=== PATIENT | female | born 1950 | race Caucasian/White ===

== ENCOUNTER 2016-12-01 05:41 | Outpatient (CLI) | payer BC ==
[~2016-12-01] VITALS: Ht 167.6 cm; Wt 59.1 kg
--- NOTE | ~2016-12-01 | HEMODYNAMI ---
PATIENT:MONTY BARNETT MEDICAL RECORD: [id number] : 54 [id number] ADMISSION DATE: 12/01/16 Generatedon:12/01/20169:54 Patient name: MONTY BARNETT Patient #: [id number] SSN: : 1950 Date of study: 12/01/2016 Page: Of Hemodynamic Procedure Report Patient Data Patient Demographics Procedure consent was obtained First Name: MONTY Gender: Female Last Name: ANIBAL : 1950 [facility] Initial: JACQUES Age: 66 year(s) Patient #: [id number] Race: Unknown Additional ID: [id number] Contact details Address: [address] [place] [address] State: [place] City: [facility] Zip code: [address] Admission Admission Data Admission Date: 12/01/2016 Admission Time: 5:41 Procedure Procedure Types Cath Procedure Peripheral Cath Diagnostic Procedure Miscellaneous Procedure Description Procedure Date Procedure Date: 12/01/2016 Procedure Start Time: 8:30 Procedure Staff Name Function Jai Sousa MD Performing Physician Kathy Bowen RT Scrub Pawel Mensah RT Monitor Lauren Huitron RN Nurse Procedure Data Cath Procedure Fluoroscopy Diagnostic fluoroscopy Total fluoroscopy Time: 7.9 time: 7.9 min min Diagnostic fluoroscopy Total fluoroscopy dose: 418 dose: 418 mGy mGy Contrast Material Contrast Material Type Amount (ml) Isovue 300 138 Entry Location Entry Primary Successful Side Size Upsize 1 Upsize Entry Closure Garces ccessful Closure Location (Fr) (Fr) 2 (Fr) Remarks Device Remarks Femoral Left 5 Fr Exoseal artery Femoral Right 5 Fr 6 Fr Exoseal artery Mid-Length Diagnostic catheters Device Type Used For End Catheter Placement Merit ULTRA BOLUS FLUSH 5Fr 65CM catheter Procedure Medications Medication Administration Route Dosage Fentanyl I.V. 50 mcg Versed 1 mg Fentanyl I.V. 50 mcg Versed 1 mg Benadryl I.V. 50 mg Nitroglycerin IC/IA I.A. 200 mcg Heparin Bolus I.V. 5000 units Fentanyl I.V. 50 mcg Versed I.V. 1 mg Fentanyl I.V. 50 mcg Versed I.V. 1 mg Hemodynamics Rest Heart Rate: 75 (bpm) Snapshots Pre Cath Intra NCS Post Cath Vital Signs Time Heart Resp SPO2 NIBP (mmHg) Rhythm Pain Status Sedation Rate (ipm) (%) Level (bpm) 8:20:43 77 15 98 136/69(101) NSR 0 (11) , No 10(A) pain 8:24:51 74 16 100 145/78(112) NSR 0 (11) , No 10(A) pain 8:29:00 75 12 100 127/76(106) NSR 0 (11) , No 10(A) pain 8:33:02 79 21 100 141/82(116) NSR 0 (11) , No 10(A) pain 8:37:12 77 17 100 143/75(112) NSR 5 (11) , 10(A) Very distressing 8:41:20 82 17 100 149/82(122) NSR 4 (11) , 10(A) Distressing 8:45:30 76 14 99 132/82(106) NSR 4 (11) , 10(A) Distressing 8:49:38 82 13 98 135/74(111) NSR 4 (11) , 10(A) Distressing 8:53:43 85 19 98 135/80(110) NSR 0 (11) , No 9(A) pain 8:57:51 86 15 98 122/72(94) NSR 0 (11) , No 9(A) pain 9:01:55 87 16 99 132/72(94) NSR 0 (11) , No 9(A) pain 9:06:03 84 17 99 135/72(115) NSR 0 (11) , No 9(A) pain 9:10:11 84 13 99 118/77(106) NSR 0 (11) , No 9(A) pain 9:14:12 83 13 100 135/78(109) NSR 0 (11) , No 9(A) pain 9:18:16 82 16 100 140/87(116) NSR 0 (11) , No 9(A) pain 9:22:22 81 14 99 135/87(118) NSR 0 (11) , No 9(A) pain 9:26:26 84 12 100 131/85(114) NSR 0 (11) , No 9(A) pain 9:30:31 87 16 98 127/79(100) NSR 0 (11) , No 9(A) pain 9:34:35 89 21 98 123/78(101) NSR 0 (11) , No 9(A) pain 9:38:37 86 17 100 134/78(105) NSR 0 (11) , No 9(A) pain 9:42:43 89 13 100 137/75(102) NSR 0 (11) , No 9(A) pain 9:46:55 86 16 98 113/68(98) NSR 0 (11) , No 9(A) pain 9:50:50 93 13 98 122/87(117) NSR 0 (11) , No 9(A) pain Medications Time Medication Route Dose Verified Delivered Reason Notes Eff ectiveness by by 8:34:09 Fentanyl I.V. 50 Lauren Lauren for sedation mcg Elana Huitron RN RN 8:34:19 Versed 1 mg Lauren Lauren for sedation Elana Huitron RN RN 8:40:01 Versed 1 mg Lauren Lauren for sedation Elana Huitron RN RN 8:40:38 Fentanyl I.V. 50 Lauren Lauren for sedation mcg Elana Huitron RN RN 8:50:23 Benadryl I.V. 50 mg Lauren Lauren for sedation Elana Huitron RN RN 8:56:49 Nitroglycerin I.A. 200 Lauren Jai for IC/IA mcg Elana Sousa MD vasodilation RN 9:00:28 Heparin Bolus I.V. 5000 Lauren Lauren for units Elana Huitron anticoagulation RN RN 9:10:38 Fentanyl I.V. 50 Lauren Lauren for sedation mcg Elana Huitron RN RN 9:10:55 Versed I.V. 1 mg Lauren Lauren for sedation Elana Huitron RN RN 9:25:29 Fentanyl I.V. 50 Lauren Lauren for sedation mcg Elana Huitron RN RN 9:25:38 Versed I.V. 1 mg Lauren Lauren for sedation Elana Huitron RN applied behavior specialist Log Time Note 7:51:21 Pawel Puckettbaldev RT (R) (CV) sent for patient. Start room use. 7:51:27 Time tracking: Regular hours 7:51:32 Plan of Care:Hemodynamics will remain stable., Cardiac rhythm will remain stable., Comfort level will be maintained., Respiratory function will remain adequate., Patient/ family verbilizes understanding of procedure., Procedure tolerated without complication., Recovers from procedure without complications.. 7:51:40 Patient received from Outpatients to IR Alert and oriented. Tansferred to table in Supine position. 7:51:41 Correct patient and procedure confirmed by team. 7:51:43 Signed procedure consent form obtained from patient. 7:51:44 ECG and BP/O2 sat monitors applied to patient. 7:51:45 Full Disclosure recording started 7:51:46 7:51:53 H&P Date Dictated: 12/01/2016 H&P Addendum completed by physician on day of procedure. (MUST COMPLETE FOR ALL OUTPATIENTS). 7:51:54 Pre-procedure instructions explained to patient. 7:51:54 Pre-op teaching completed and patient verbalized understanding. 7:51:59 Family in waiting room. 7:52:04 Patient NPO since Midnight. 7:52:08 Is the patient allergic to Iodine/contrast media? No. 7:52:10 Is patient on blood thinner?Yes 7:52:13 ACC The patient was administered the following blood thiners within the last 24 hours: ACCPlavix 7:52:15 Patient diabetic? No. 7:52:19 Use device set IR Diagnostic 7:52:20 Sterile Angiographic Pack opened to sterile field. 7:52:21 Bag Decanter opened to sterile field. 7:52:22 Acist Manifold opened to sterile field. 7:52:23 Acist Syringe opened to sterile field. 7:52:23 Acist Hand Control opened to sterile field. 7:52:32 7:52:32 ----Pre-sedation anethsthesia assessment.---- 7:52:34 Previous problem with sedation/anesthesia? No ? 7:52:35 Snore? Yes 7:52:36 Sleep apnea? No 7:52:38 Deviated septum? No 7:52:40 Opens mouth fully? Yes 7:52:40 Sticks out tongue? Yes 7:52:43 Airway obstruction? No ? 7:52:47 Sleep apnea? Yes 7:52:51 Dentures? Yes ? 8:10:03 Pre procedure: right dorsailis pedis pulse 0-Absent 8:10:07 Pre procedure: left dorsailis pedis pulse Doppler 8:10:15 Pre procedure: right posterior tibial pulse 0-Absent 8:10:22 Pre procedure: left posterior tibial pulse Doppler 8:10:31 Patient pain scale 0/10 no pain. 8:10:45 IV patent on arrival in right forearm with 0.9% NaCl at [facility]. 8:10:49 Sharps counted by scrub and verified by R.N. 8:10:50 Alarms reviewed by RAnna N. 8:11:14 Bilateral groins area was prepped with chlora-prep and draped in sterile fashion 8:19:29 Vital chart was started 8:19:30 Baseline sample Acquired. 8:19:34 Rhythm: sinus rhythm 8:27:36 Physician arrived 8:27:36 --------ALL STOP TIME OUT------ 8:27:37 Final Timeout: patient, procedure, and site verified with staff and physician. All members of the team are in agreement. 8:27:40 Bilateral groins site verified by team. 8:27:44 Physical assessment completed. ASA score P 2 - A patient with mild systemic disease as per Jai Sousa MD. 8:27:47 Sedation plan: IV Moderate Sedation Versed, Fentanyl 8:30:04 Procedure started. 8:30:10 Local anesthetic to left femerol artery with Lidocaine 1% by Jai Sousa MD.INITIAL ACCESS ONLY 8:30:43 A 5 Fr sheath was inserted into the Left Femoral artery 8:30:46 Cook DOC .035 guide wire opened to sterile field. 8:30:46 Terumo 5Fr [place] Sheath opened to sterile field. 8:30:47 Micropuncture VSI 4FR kit opened to sterile field. 8:30:47 TUBING, CONTRAST INJCTN HI PRES opened to sterile field. 8:30:50 A Merit ULTRA BOLUS FLUSH 5Fr 65CM catheter was advanced over the wire and used for . 8:34:09 Fentanyl 50 mcg I.V. was administered by Lauren Huitron RN; for sedation; 8:34:19 Versed 1 mg was administered by Lauren Huitron RN; for sedation; 8:40:01 Versed 1 mg was administered by Lauren Huitron RN; for sedation; 8:40:37 Local anesthetic to right femoral artery with Lidocaine 1% by Jai Sousa MD.ADDITIONAL ACCESS 8:40:38 Fentanyl 50 mcg I.V. was administered by Lauren Huitron RN; for sedation; 8:40:50 A 5 Fr sheath was inserted into the Right Femoral artery 8:41:06 Terumo 5FR ANGLED 65CM glide catheter opened to sterile field. 8:41:07 Alfredo BANNER 260 .035 glide wire opened to sterile field. 8:42:18 BasixTOUCH Inflation Syringe opened to sterile field. 8:50:00 EV3 NITINOL .018 80CM guide wire opened to sterile field. 8:50:23 Benadryl 50 mg I.V. was administered by Lauren Huitron RN; for sedation; 8:51:58 Cordis 5Fr BRITE TIP 11cm sheath opened to sterile field. 8:52:20 Cook DOC .035 guide wire opened to sterile field. 8:56:49 Nitroglycerin IC/IA 200 mcg I.A. was administered by Jai Sousa MD; for vasodilation; 9:00:28 Heparin Bolus 5000 units I.V. was administered by Lauren Huitron RN; for anticoagulation; 9:02:18 Terumo ANGLE 180L glide wire opened to sterile field. 9:02:19 CXI Catheter 90cm opened to sterile field. 9:06:14 Cook MERINO 260 guide wire opened to sterile field. 9:06:15 Cordis 6Fr BRITE TIP 11cm sheath opened to sterile field. 9:06:23 Sheath upsized to a 6 Fr Mid-Length. 9:09:20 Inflation number: 1 A Cordis Powerflex Pro 4.0 x 40 x 135cm balloon was prepped and advanced across the Proximal Common Iliac, Right, then inflated to 0 TERESE for 0:00 (min:sec). 9:10:38 Fentanyl 50 mcg I.V. was administered by Lauren Huitron RN; for sedation; 9:10:55 Versed 1 mg I.V. was administered by Lauren Huitron RN; for sedation; 9:14:38 Cordis SMART 10 X 60 X 120 stent was deployed across Proximal Common Iliac, Right . 9:20:22 Inflation number: 2 A Cordis Powerflex Pro 8.0 x 40 x 80cm balloon was prepped and advanced across the Proximal Common Iliac, Right, then inflated to 0 TERESE for 0:00 (min:sec). 9:25:29 Fentanyl 50 mcg I.V. was administered by Lauren Huitron RN; for sedation; 9::38 Versed 1 mg I.V. was administered by Lauren Huitron RN; for sedation; 9:33:19 Cordis 6Fr Exoseal opened to sterile field. 9:33:21 Cordis 5Fr Exoseal opened to sterile field. 9:33:41 Sheath removed intact; hemostasis achieved with Exoseal to the Right Femoral artery. 9:33:53 Sheath removed intact; hemostasis achieved with Exoseal to the Left Femoral artery. 9:36:26 Procedure ended.(Physican Out) 9:41:07 Fluoroscopy time 07.90 minutes. 9:41:14 Flurop Dose total: 418 9:41:14 Fluoroscopy dose: 418 mGy 9:41:23 Contrast amount:Isovue 300 138ml. 9:41:25 Sharps counted by scrub and verified by R.N. 9:41:27 Insertion/operative site no bleeding no hematoma. 9:41:31 Post-op/insertion site Right Femoral artery dressed using a 4 x 4 and Tegaderm. 9:41:33 Post-op/insertion site Left Femoral artery dressed using a 4 x 4 and Tegaderm. 9:41:36 Post right femoral artery:stable 9:41:49 Post left femerol artery:stable 9:41:51 Post Procedure Pulses reassessed and unchanged 9:41:56 Post-procedure physical assessment completed. ASA score P 2 - A patient with mild systemic disease as per Jai Sousa MD. 9:41:57 Post procedure instruction explained to patient.Patient verbalizes understanding. 9:41:58 Patient needs reinforcement of post procedure teaching. 9:41:59 Procedure and supply charges have been captured, reviewed, submitted and are correct. 9:53:05 Report given to Outpatients. 9:53:09 Patient transfered to Outpatients with Bed. 9:54:02 Vital chart was stopped Intervention Summary Intervention Notes Time ActionType Lesion and Equipment Action# Pressure Duration Attributes Used 9:09:20 Inflate Proximal Cordis 1 0 00:00 balloon Common Powerflex Iliac, Pro 4.0 x Right 40 x 135cm balloon 9:14:38 Deploy self Proximal Cordis 1 expanding Common SMART 10 stent Iliac, X 60 X Right 120 stent 9:20:22 Inflate Proximal Cordis 2 0 00:00 balloon Common Powerflex Iliac, Pro 8.0 x Right 40 x 80cm balloon Device Usage Item Name Manufacture Quantity Catalog Number Hospital Part Current Min imal Lot# / Charge Number Stock Stock Serial# Code Sterile Cardinal [address] [id number] 5 Angiographic Health Pack Bag Decanter Microtek 1 2002S 516543 21528 833988 5 Medical Inc. Acist Acist 1 87471 127073 728825 681630 5 Manifold Medical Systems Inc Acist Syringe Acist 1 68870 861227 545490 277309 20 Medical Systems Inc Acist Hand Acist 1 84450 618428 219610 015655 5 Control Medical Systems Inc Cook DOC .035 Transcriptic Medical 2 F09137 289286 194967 5 6791829 guide wire [id number] Terumo 5Fr Terumo 1 EDX069 429865 390471 304557 40 [place] Sheath Micropuncture VSI VASCULAR 1 7266V 636801 356651 5 VSI 4FR kit SOLUTIONS TUBING, Merit 1 [id number] 448545 762728 534171 5 CONTRAST Medical INJCTN HI PRES Merit ULTRA Merit 1 [id number] 783660 511794 5 BOLUS FLUSH Medical 5Fr 65CM catheter Terumo 5FR Terumo 1 CG507 540432 195471 5 ANGLED 65CM glide catheter [facility] 1 F25431 633993 275073 5 7963293 ROADRUNNER 260 .035 glide wire BasixTOUCH Merit 1 IL6682 641885 831949 347039 5 Inflation Medical Syringe EV3 NITINOL Ev3 1 M830042 286407 583080 5 70440133 .018 80CM guide wire Cordis 5Fr Cardinal 1 [id number] 918033 605290 5 BRITE TIP Health 11cm sheath Terumo ANGLE Terumo 1 VC6359 328494 821415 876362 5 180L glide wire CXI Catheter [facility] 1 M48517 086293 030531 697705 5 90cm Cook [facility] 1 T06754 367608 750012 5 4895622 260 guide wire Cordis 6Fr Cardinal 1 [id number] 423741 371199 5 BRITE TIP Health 11cm sheath Cordis Cardinal 1 [id number] 588363 598921 146655 5 Powerflex Pro Health 4.0 x 40 x 135cm balloon Cordis SMART Cardinal 1 [id number] 776669 106612 5 [id number] 10 X 60 X 120 Health stent Cordis Cardinal 1 [id number] 885489 589853 717776 5 Powerflex Pro Health 8.0 x 40 x 80cm balloon Cordis 6Fr Cardinal 1 EX600 722547 478143 663337 10 [id number] Exoseal Health Cordis 5Fr Cardinal 1 EX500 815408 470822 211767 10 [id number] Exoseal Health Signature Audit Mobile Stage Time Signature Unsigned Intra-Procedure 12/01/2016 [place]le 9:53:58 AM Makenna RT (R) (CV) Signatures Monitor : Pawel Signature : Makenna RT Date : Time : [facility] [address] [place] [address]
[~2016-12-01 05:41] MED LIST: BAYER CHEWABLE81 MG PO; CALCIUM 600+D T1 TA1 PO; CLARITIN 10 MG10 MG PO; CYCLOBENZAPRINE10 MG PO; EFFEXOR75 MG PO; HYDROCODONE-APA1 TAB PO; PLAVIX75 MG PO; PRAVACHOL40 MG PO; RESTORIL15 MG PO; VITAMIN B-12500 MCG PO; VITAMIN D31000 UNI2 PO; VITAMIN E400 UNI2 PO
[2016-12-01 06:16] LABS: BASOPHILS 0.4 % (0-2); EOSINOPHILS 1.6 % (0-7); HEMATOCRIT 44.5 % (36.0-48.0); HEMOGLOBIN 15.2 g/dL (12-16); IMMATURE GRANULOCYTES 0.1 % (0-5); LYMPHOCYTES 43.7 % (15-50); MCH 33.2 pg (26.0-34.0); MCHC 34.2 g/dL (31.0-37.0); MCV 97.2 fL (80.0-100.0); MEAN PLATELET VOLUME 9.1 fL (7.4-10.4); MONOCYTES 5.5 % (2-11); NEUTROPHILS 48.7 % (40-80); PLATELET COUNT 257 10x3/uL (130-400); RBC 4.58 10x6/uL (4.00-5.40); RDW 12.7 % (11.5-14.5); WBC 8.5 10x3/uL (4.8-10.8)
[2016-12-01 06:23] LABS: ANION GAP 12.3 mmol/L (8-16); CALCIUM 8.7 mg/dL (8.5-10.1); CARBON DIOXIDE 28.6 mmol/L (21.0-32.0); POTASSIUM - SERUM 3.9 mmol/L (3.5-5.1)
[2016-12-01 06:26] LABS: INR 0.88 (0.85-1.17); PROTIME 11.8 SECONDS (11.6-15.0)
[2016-12-01 06:36] VITALS: BP 99/64; Ht 167.6 cm; Wt 59.1 kg
--- NOTE | 2016-12-01 10:36 | NUR ---
1015-RECD FROM [facility]. POST ARTERIOGRAM WITH R ILIAC STENT. REMINDED TO KEEP HOB FLAT AND LEGS STRAIGHT. PEDAL PULSES WITH A DOPPLER. BILAT GROIN DRESSINGS DRY AND INTACT. SHERRIE SANTANA RN FOR RADIOLOGIST HERE TO SEE PATIENT.
--- NOTE | 2016-12-01 15:29 | NUR ---
1244 STILL C/O BACK PAIN , NORCO 10 I PO GIVEN. 1400 IV DC WITH CATHER TIP INTACT, VS TAKEN AND PLACED ON POST SHEET
--- NOTE | 2016-12-01 15:31 | NUR ---
1430 GRION AREA WITH BILAT DRESSING C/D/I, NO HEMATOMA NOTED
== END 2016-12-01 14:30 | disposition home or self-care (01) ==
LOC: D.OPS 05:41 → D.SP 08:00 → D.OPS 08:00
PROVIDERS: General Practice
DX: I70.211 Atherosclerosis of native arteries of extremities with intermittent claudication, right leg (principal); I70.92 Chronic total occlusion of artery of the extremities; T82.856A Stenosis of peripheral vascular stent, initial encounter; Z72.0 Tobacco use

== ENCOUNTER 2017-07-18 21:08 | Inpatient (IN) | payer MEDICARE, BC ==
[~2017-07-18] VITALS: Ht 167.6 cm; Wt 59.0 kg
--- NOTE | ~2017-07-18 | EC ---
PATIENT:MONTY BARNETT DATE OF SERVICE: 07/19/17 SEX: F MEDICAL RECORD: [id number] DATE OF : 54 LOCATION:[facility] D230 AGE OF PATIENT: 67 ADMISSION DATE: 07/19/17 REFERRING PHYSICIAN: INTERPRETING PHYSICIAN: KAYLYNN YEUNG MD ECHOCARDIOGRAM REPORT ECHO CHARGES 5 ECHO LIMITED CLINICAL DIAGNOSIS: SOB/ POST CODE BLUE ASSESS EF ECHOCARDIOGRAPHIC MEASUREMENTS (adult normal given) AC root (d.<3.7cm) cm LV Septum d (<1.2 cm> 1.2 cm Valve Excursion cm LV Septum (systole) 1.3 cm Left Atria (s.<4.0cm> 4.3 cm LVPW d(<1.2cm) 1.1 cm RV (d.<2.3cm) 3.3 cm LVPW (sytole) 1.6 cm LV diastole(<5.6CM) 4.8 cm MV E-F(>70mm/sec) cm LV systole 3.3 cm LVOT Diameter 1.3 cm MV exc.(>10mm) cm Est.ejection fraction (50-75%) % Pericardial Effusion N DOPPLER: LVIT cm/sec A cm/sec E cm/sec LA cm/sec RVSP 51 mmHg LVOT cm/sec AOP1/2T m/s Asc. Ao cm/sec RVOT cm/sec RA cm/sec PA cm/sec AV Gradient Peak mmHg AV Mean mmHg AV Area cm MV Gradient Peak mmHg MV Mean mmHg MV Area cm COMMENTS: Director Of Strategic Sourcing: Domonique DARDEN Doll Wigs Hackler: Jabier Yeung TAPE# PACS DATE OF SERVICE: 07/21/2017 FINDINGS: 1. Left ventricular chamber size is within normal limits. Left ventricular systolic function is moderately reduced. Overall ejection fraction in the 35% range. 2. Left atrium, right atrium, and right ventricular chamber sizes are dilated. Left atrium measures 4.3 cm. 3. Valvular structures have normal structure and motion. 4. Doppler interrogation reveals moderate tricuspid regurgitation. No other ECHOCARDIOGRAM REPORT [id number] MONTY BARNETT valvular insufficiency or stenosis. Pulmonary systolic pressure is estimated at 51 mmHg. 5. No evidence of pericardial effusion or left ventricular thrombus. TRANSINT:[id number] Voice Confirmation ID: [id number] DOCUMENT ID: [id number] KAYLYNN YEUNG MD at 1025 CC: [id number] DICTATION DATE: 07/22/17 1123 CONVERSION WORKER: 07/22/17 1453 DIS IN 07/21/17 [id number] [place] [address]
--- NOTE | ~2017-07-18 | OP ---
PATIENT NAME: MONTY BARNETT MEDICAL RECORD: [id number] :54 LOCATION:[facility] D.2304 ADMISSION DATE:07/19/17 SURGEON: ROBERT GUERRERO MD DATE OF OPERATION: 07/21/2017 PREOPERATIVE DIAGNOSES: 1. Need for IV access. 2. Acute respiratory failure, on ventilator. 3. Frostbite. POSTOPERATIVE DIAGNOSES: 1. Need for IV access. 2. Acute respiratory failure, on ventilator. 3. Frostbite. PROCEDURE: Left subclavian vein triple-lumen central venous line placement. SURGEON: Robert Guerrero MD REPORT OF PROCEDURE: The patient's left chest was prepped and draped in sterile fashion. A needle was used to cannulate the left subclavian vein. The guidewire was advanced with ease. Over this wire, a dilator was placed followed by the triple lumen catheter. The catheter aspirated nonpulsatile dark blood and flushed easily in all 3 ports. This was sutured into place with 3-0 silk ties and dressed appropriately. COMPLICATIONS: None. CONDITION: Critical. ANESTHESIA: General endotracheal. BLOOD LOSS: Minimal. TRANSINT:[id number] Voice Confirmation ID: [id number] DOCUMENT ID: [id number] ROBERT GUERRERO MD at 1123 CC: [id number] DICTATION DATE: 07/21/17 1212 EXTRUDER TENDER: 07/21/17 1316 DIS IN 07/21/17 [facility] [address] [id number]
[2017-07-18 23:11] LABS: BASOPHILS 0.1 % (0-2); EOSINOPHILS 0.3 % (0-7); HEMATOCRIT 35.4 % (36.0-48.0); IMMATURE GRANULOCYTES 0.1 % (0-5); MCH 32.5 pg (26.0-34.0); MCHC 33.9 g/dL (31.0-37.0); MCV 95.9 fL (80.0-100.0); MONOCYTES 6.6 % (2-11); NEUTROPHILS 73.9 % (40-80); RBC 3.69 10x6/uL (4.00-5.40); RDW 13.1 % (11.5-14.5); WBC 10.4 10x3/uL (4.8-10.8)
[2017-07-18 23:12] LABS: PLATELET COUNT 152 10x3/uL (130-400)
[2017-07-18 23:25] LABS: ALBUMIN 3.1 g/dL (3.4-5.0); ALKALINE PHOSPHATASE 142 U/L (46-116); ALT (SGPT) 77 U/L (10-68); CALC OSMOLALITY 277 mosm/kg (275-300); CALCIUM 8.6 mg/dL (8.5-10.1); CARBON DIOXIDE 31.5 mmol/L (21.0-32.0); CHLORIDE - SERUM 99 mmol/L (98-107); CREATININE - SERUM 0.8 mg/dL (0.6-1.3); GLUCOSE 116 mg/dL (74-106); POTASSIUM - SERUM 3.6 mmol/L (3.5-5.1); PROTEIN - SERUM 6.8 g/dL (6.4-8.2); SODIUM 138 mmol/L (136-145); UREA NITROGEN 14 mg/dL (7-18); eGFR NON AFRICAN AMERICAN 76 mL/min (90-120)
[2017-07-18 23:28] LABS: INR 0.86 (0.85-1.17); PROTIME 11.4 SECONDS (11.6-15.0)
[2017-07-18 23:29] LABS: APTT 33.3 SECONDS (22.8-39.4)
[2017-07-18 23:30] LABS: D-DIMER-QUANTITATIVE 3.01 ug/mLFEU (0.20-0.54)
[2017-07-18 23:42] LABS: APPEARANCE CLEAR (CLEAR); BILIRUBIN NEGATIVE (NEGATIVE); COLOR YELLOW (YELLOW); GLUCOSE NEGATIVE (NEGATIVE); KETONE NEGATIVE (NEGATIVE); NITRITE POSITIVE (NEGATIVE); PROTEIN 1+ mg/dL (NEGATIVE); UROBILINOGEN NORMAL (NORMAL)
[2017-07-18 23:43] LABS: BACTERIA MANY /hpf (NONE SEEN); EPITHELIAL CELLS 0-5 /hpf (0-5); RED CELLS - URINE 0-5 /hpf (0-5)
[2017-07-18 23:45] LABS: CREATINE KINASE 781 UL (21-215); PRO BNP 5173 pg/mL (0-125); TROPONIN-I < 0.017 ng/mL (0.000-0.060)
[2017-07-18 23:47] LABS: CKMB 14.7 U/L (0.0-3.6)
[2017-07-19 00:59] LABS: AMYLASE - SERUM 49 U/L (25-115); LIPASE 134 U/L (73-393)
[2017-07-19 04:00] VITALS: BP 171/75
[2017-07-19 04:09] VITALS: BP 171/75; BMI 21.0
[2017-07-19 07:48] VITALS: BP 158/60
[2017-07-19 10:36] VITALS: Ht 167.6 cm; Wt 59.0 kg
[2017-07-19 12:19] VITALS: BP 152/71
[2017-07-19 15:42] VITALS: BP 168/88
[2017-07-19 20:00] VITALS: BP 157/66
[2017-07-20] VITALS: BP 157/73
[2017-07-20 03:51] LABS: BASOPHILS 0.2 % (0-2); EOSINOPHILS 1.1 % (0-7); HEMATOCRIT 31.4 % (36.0-48.0); HEMOGLOBIN 10.3 g/dL (12-16); IMMATURE GRANULOCYTES 0.3 % (0-5); LYMPHOCYTES 25.1 % (15-50); MCH 31.8 pg (26.0-34.0); MCHC 32.8 g/dL (31.0-37.0); MCV 96.9 fL (80.0-100.0); MEAN PLATELET VOLUME 9.1 fL (7.4-10.4); NEUTROPHILS 62.3 % (40-80); PLATELET COUNT 141 10x3/uL (130-400); RBC 3.24 10x6/uL (4.00-5.40); RDW 13.2 % (11.5-14.5); WBC 6.3 10x3/uL (4.8-10.8)
[2017-07-20 04:00] VITALS: BP 150/66
[2017-07-20 04:16] LABS: ALKALINE PHOSPHATASE 104 U/L (46-116); CALCIUM 7.6 mg/dL (8.5-10.1); CARBON DIOXIDE 30.1 mmol/L (21.0-32.0); CHLORIDE - SERUM 107 mmol/L (98-107); CREATININE - SERUM 0.8 mg/dL (0.6-1.3); GLUCOSE 95 mg/dL (74-106); PHOSPHOROUS 2.3 mg/dL (2.5-4.9); POTASSIUM - SERUM 3.7 mmol/L (3.5-5.1); PROTEIN - SERUM 5.3 g/dL (6.4-8.2); SODIUM 144 mmol/L (136-145); eGFR NON AFRICAN AMERICAN 76 mL/min (90-120)
[2017-07-20 04:20] LABS: ALBUMIN 2.2 g/dL (3.4-5.0); ALT (SGPT) 47 U/L (10-68); CALC OSMOLALITY 284 mosm/kg (275-300); UREA NITROGEN 8 mg/dL (7-18)
[2017-07-20 07:54] VITALS: BP 151/73
[2017-07-20 12:05] VITALS: BP 179/81
[2017-07-20 16:18] VITALS: BP 154/75
[2017-07-20 20:00] VITALS: BP 175/91
[2017-07-21] VITALS (30 sets, daily range): BP systolic 51–447; BP diastolic 38–809
[2017-07-21 04:56] LABS: BASOPHILS 0.2 % (0-2); EOSINOPHILS 1.6 % (0-7); HEMATOCRIT 31.1 % (36.0-48.0); HEMOGLOBIN 10.1 g/dL (12-16); IMMATURE GRANULOCYTES 0.2 % (0-5); LYMPHOCYTES 30.9 % (15-50); MCH 31.5 pg (26.0-34.0); MCHC 32.5 g/dL (31.0-37.0); MCV 96.9 fL (80.0-100.0); MEAN PLATELET VOLUME 9.1 fL (7.4-10.4); MONOCYTES 11.2 % (2-11); NEUTROPHILS 55.9 % (40-80); PLATELET COUNT 143 10x3/uL (130-400); RBC 3.21 10x6/uL (4.00-5.40); WBC 6.5 10x3/uL (4.8-10.8)
[2017-07-21 05:15] LABS: ALBUMIN 2.4 g/dL (3.4-5.0); ALKALINE PHOSPHATASE 99 U/L (46-116); ALT (SGPT) 42 U/L (10-68); CALC OSMOLALITY 280 mosm/kg (275-300); CALCIUM 7.6 mg/dL (8.5-10.1); CARBON DIOXIDE 28.9 mmol/L (21.0-32.0); CHLORIDE - SERUM 105 mmol/L (98-107); CREATININE - SERUM 0.7 mg/dL (0.6-1.3); GLUCOSE 92 mg/dL (74-106); POTASSIUM - SERUM 3.6 mmol/L (3.5-5.1); PROTEIN - SERUM 5.6 g/dL (6.4-8.2); SODIUM 142 mmol/L (136-145); UREA NITROGEN 6 mg/dL (7-18); eGFR NON AFRICAN AMERICAN 89 mL/min (90-120)
[2017-07-21] MEDS ORDERED: XALATAN 0.0052.5 ML RIGHT EYE (05:57)
[2017-07-21] MEDS ORDERED: PREDNISOLONE 110 ML RIGHT EYE (09:35)
[2017-07-21 11:23] LABS: UDS - AMPHET NEGATIVE QUAL (NEGATIVE); UDS - BARB NEGATIVE QUAL (NEGATIVE); UDS - BENZO NEGATIVE QUAL (NEGATIVE); UDS - COCAINE NEGATIVE QUAL (NEGATIVE); UDS - OPIATE POSITIVE QUAL (NEGATIVE); UDS - PCP NEGATIVE QUAL (NEGATIVE); UDS - THC NEGATIVE QUAL (NEGATIVE)
== END 2017-07-21 16:00 | disposition short-term general hospital (02) | DRG 871 ==
LOC: D.ER 21:08 → D.MS 07-19 02:33 → D.ICU 07-19 02:33
PROVIDERS: Family Medicine; Nurse Practitioner Family
PROC: 02HV33Z Insertion of Infusion Device into Superior Vena Cava, Percutaneous Approach (ICD-10-PCS; principal; 2017-07-21)
PROC: 0H9NXZZ Drainage of Left Foot Skin, External Approach (ICD-10-PCS; 2017-07-21)
PROC: 0BH17EZ Insertion of Endotracheal Airway into Trachea, Via Natural or Artificial Opening (ICD-10-PCS; 2017-07-21)
PROC: 5A1935Z Respiratory Ventilation, Less than 24 Consecutive Hours (ICD-10-PCS; 2017-07-21)
DX: A41.9 Sepsis, unspecified organism (principal); J18.9 Pneumonia, unspecified organism; J81.0 Acute pulmonary edema; I46.9 Cardiac arrest, cause unspecified; T34.832A Frostbite with tissue necrosis of left toe(s), initial encounter; N39.0 Urinary tract infection, site not specified; J80 Acute respiratory distress syndrome; J44.0 Chronic obstructive pulmonary disease with (acute) lower respiratory infection; E87.2 Acidosis; T34.831A Frostbite with tissue necrosis of right toe(s), initial encounter; T69.9XXA Effect of reduced temperature, unspecified, initial encounter; X31.XXXA Exposure to excessive natural cold, initial encounter; R41.82 Altered mental status, unspecified; T48.1X5A Adverse effect of skeletal muscle relaxants [neuromuscular blocking agents], initial encounter; T42.4X5A Adverse effect of benzodiazepines, initial encounter; I73.9 Peripheral vascular disease, unspecified; G89.29 Other chronic pain; M54.5 Low back pain; N31.9 Neuromuscular dysfunction of bladder, unspecified; G62.9 Polyneuropathy, unspecified; R23.8 Other skin changes; F32.9 Major depressive disorder, single episode, unspecified; R00.0 Tachycardia, unspecified; E78.5 Hyperlipidemia, unspecified; Z87.891 Personal history of nicotine dependence

== ENCOUNTER → 2017-12-18 12:26 | Outpatient (CLI) | payer MEDICARE, BC ==
[2017-07-19 10:36] VITALS: BMI 20.9
[~2017-12-18 12:26] MED LIST changes: +PREDNISOLONE 110 ML RIGHT EYE; +XALATAN 0.0052.5 ML RIGHT EYE
== END | disposition home or self-care (01) ==
LOC: D.CT 12:26
DX: I73.9 Peripheral vascular disease, unspecified (principal)

== ENCOUNTER → 2019-03-06 12:36 | Outpatient (CLI) | payer MEDICARE, BC ==
[2017-07-19 10:36] VITALS: BMI 20.9
== END | disposition home or self-care (01) ==
LOC: D.US 12:36 → D.CT 14:00
PROVIDERS: ATTEND General Practice
DX: I73.9 Peripheral vascular disease, unspecified (principal)

== ENCOUNTER 2019-07-17 23:49 | Emergency (ER) | payer MEDICARE, BC ==
[~2019-07-17] VITALS: Ht 167.6 cm; Wt 72.7 kg
[2019-07-17 23:57] VITALS: Ht 167.6 cm; Wt 72.7 kg
[2019-07-18 01:22] VITALS: BP 118/72
== END 2019-07-18 01:22 | disposition home or self-care (01) ==
LOC: D.ER 23:49
DX: S01.01XA Laceration without foreign body of scalp, initial encounter (principal); W01.0XXA Fall on same level from slipping, tripping and stumbling without subsequent striking against object, initial encounter; Y93.9 Activity, unspecified; Y92.9 Unspecified place or not applicable; G62.9 Polyneuropathy, unspecified; I73.9 Peripheral vascular disease, unspecified

== ENCOUNTER 2019-07-30 15:45 | Emergency (ER) | payer MEDICARE, BC ==
[~2019-07-30] VITALS: Ht 167.6 cm; Wt 68.2 kg
[2019-07-30 16:08] VITALS: Ht 167.6 cm; Wt 68.2 kg
[2019-07-30 16:47] VITALS: BP 113/68
== END 2019-07-30 16:48 | disposition home or self-care (01) ==
LOC: D.ER 15:45
DX: Z48.02 Encounter for removal of sutures (principal); I73.9 Peripheral vascular disease, unspecified; G62.9 Polyneuropathy, unspecified

== ENCOUNTER 2020-10-21 13:40 | Observation (INO) | payer MEDICARE, BC ==
[~2020-10-21] VITALS: Ht 167.6 cm; Wt 56.8 kg
[~2020-10-21 13:40] MED LIST changes: +ASCORBIC ACID500 MG PO; +EFFEXOR XR75 MG PO; +GALZIN25 MG PO; +KEPPRA500 MG PO; +LEVAQUIN750 MG PO; +LIPITOR80 MG PO; +METOPROLOL TART25 MG PO; +NEURONTIN600 MG PO; +TRAZODONE HCL150 MG PO; +VITAMIN D3 5,01 EACH PO
[2020-10-21 14:10] LABS: BILIRUBIN NEGATIVE (NEGATIVE); KETONE NEGATIVE (NEGATIVE); NITRITE NEGATIVE (NEGATIVE); UROBILINOGEN NORMAL mg/dL (< 2)
[2020-10-21 14:17] VITALS: BP 117/85
[2020-10-21 14:25] LABS: BASOPHILS 0.1 % (0-2); EOSINOPHILS 0.1 % (0-7); HEMATOCRIT 37.5 % (36.0-48.0); HEMOGLOBIN 12.6 g/dL (12-16); IMMATURE GRANULOCYTES 0.3 % (0-5); LYMPHOCYTE ABS# 3.44 10x3/uL (1.18-3.74); LYMPHOCYTES 21.8 % (15-50); MCH 32.1 pg (26.0-34.0); MCHC 33.6 g/dL (31.0-37.0); MCV 95.7 fL (80.0-100.0); MEAN PLATELET VOLUME 9.7 fL (7.4-10.4); NEUTROPHIL ABS# 11.34 10x3/uL (1.56-6.13); NEUTROPHILS 71.7 % (40-80); PLATELET COUNT 186 10x3/uL (130-400); RBC 3.92 10x6/uL (4.00-5.40); RDW 12.5 % (11.5-14.5); WBC 15.8 10x3/uL (4.8-10.8)
[2020-10-21 14:32] LABS: UDS - AMPHET NEGATIVE QUAL (NEGATIVE); UDS - BARB NEGATIVE QUAL (NEGATIVE); UDS - BENZO NEGATIVE QUAL (NEGATIVE); UDS - COCAINE NEGATIVE QUAL (NEGATIVE); UDS - OPIATE POSITIVE QUAL (NEGATIVE); UDS - PCP NEGATIVE QUAL (NEGATIVE); UDS - THC NEGATIVE QUAL (NEGATIVE)
[2020-10-21 14:37] LABS: CALC OSMOLALITY 279 mosm/kg (275-300); CALCIUM 8.4 mg/dL (8.5-10.1); CARBON DIOXIDE 28.6 mmol/L (21.0-32.0); CHLORIDE - SERUM 105 mmol/L (98-107); GLUCOSE 110 mg/dL (74-106); POTASSIUM - SERUM 3.5 mmol/L (3.5-5.1); SODIUM 141 mmol/L (136-145); UREA NITROGEN 7 mg/dL (7-18); eGFR NON AFRICAN AMERICAN 58 mL/min (90-120)
[2020-10-21 14:54] LABS: ALBUMIN 2.8 g/dL (3.4-5.0); ALKALINE PHOSPHATASE 99 U/L (30-120); ALT (SGPT) 32 U/L (10-68); BILIRUBIN - TOTAL 0.41 mg/dL (0.2-1.3); CKMB 0.6 U/L (0.0-3.6); CREATINE KINASE 95 UL (21-215); PROTEIN - SERUM 6.2 g/dL (6.4-8.2); TROPONIN-I < 0.017 ng/mL (0.000-0.060)
[2020-10-21 16:00] VITALS: BP 120/82
--- NOTE | 2020-10-21 17:00 | NUR ---
REPORT TO NURSE LARA
--- NOTE | 2020-10-21 17:15 | NUR ---
Arrived to unit from ER via w/c in stable condition accompanied by hospital staff and spouse, oriented to unit, oriented to room, oriented to bed controls, currently lying in bed with eyes closed, respirations slow/deep/even, rouses easily with verbal stimulus, denies pain/other discomfort at this time, call light/phone/water within reach, no s/s of acute distress observed.
[2020-10-21 18:00] VITALS: BP 117/45; Ht 167.6 cm; Wt 56.8 kg
[2020-10-21 20:16] VITALS: BP 110/56
--- NOTE | 2020-10-22 02:10 | NUR ---
1944-- SADA (PT ) SPOKE WITH ME REGARDING PT HOME MEDICATIONS, REVIEWED ALL MEDS & UPDATED LIST. STATES THAT HE GIVES PT HER MEDS & THAT SHE DOESN'T HAVE ACCESS TO THEM & THAT HER CONFUSION CAN NOT BE RELATED TO TAKING TOO MANY PAIN PILLS. STATES THAT SHE FOLLOWS AT THE PAIN CLINIC & THEY ARE VERY STRICT ON MEDS. PT RESTING QUIETLY IN BED AT PRESENT. NO NEEDS VOICED
[2020-10-22 04:09] VITALS: BP 106/52
[2020-10-22 05:47] LABS: BASOPHILS 0.2 % (0-2); EOSINOPHILS 0.5 % (0-7); HEMATOCRIT 37.1 % (36.0-48.0); HEMOGLOBIN 12.1 g/dL (12-16); IMMATURE GRANULOCYTES 0.2 % (0-5); LYMPHOCYTE ABS# 2.24 10x3/uL (1.18-3.74); LYMPHOCYTES 20.5 % (15-50); MCH 31.6 pg (26.0-34.0); MCHC 32.6 g/dL (31.0-37.0); MCV 96.9 fL (80.0-100.0); MEAN PLATELET VOLUME 9.8 fL (7.4-10.4); NEUTROPHIL ABS# 8.04 10x3/uL (1.56-6.13); NEUTROPHILS 73.6 % (40-80); PLATELET COUNT 185 10x3/uL (130-400); RBC 3.83 10x6/uL (4.00-5.40); RDW 12.6 % (11.5-14.5)
[2020-10-22 05:49] LABS: WBC 10.9 10x3/uL (4.8-10.8)
[2020-10-22 06:01] LABS: ALBUMIN 2.6 g/dL (3.4-5.0); ALKALINE PHOSPHATASE 95 U/L (30-120); ALT (SGPT) 27 U/L (10-68); BILIRUBIN - TOTAL 0.37 mg/dL (0.2-1.3); CALC OSMOLALITY 288 mosm/kg (275-300); CALCIUM 8.2 mg/dL (8.5-10.1); CARBON DIOXIDE 29.5 mmol/L (21.0-32.0); CHLORIDE - SERUM 109 mmol/L (98-107); CKMB 0.8 U/L (0.0-3.6); CREATINE KINASE 80 UL (21-215); CREATININE - SERUM 0.8 mg/dL (0.6-1.3); GLUCOSE 93 mg/dL (74-106); MAGNESIUM - SERUM 1.8 mg/dL (1.8-2.4); POTASSIUM - SERUM 3.6 mmol/L (3.5-5.1); SODIUM 146 mmol/L (136-145); THYROID STIMULATING HORMONE 1.34 uIU/mL (0.36-3.74); TROPONIN-I < 0.017 ng/mL (0.000-0.060); UREA NITROGEN 6 mg/dL (7-18); eGFR NON AFRICAN AMERICAN 75 mL/min (90-120)
--- NOTE | 2020-10-22 07:40 | NUR ---
Lying in bed with eyes closed, respirations slow/deep/even, rouses easily with verbal stimulus, T/R self ad kristopher, cont of B/B with BRPs with assist ad kristopher, denies pain/other discomfort at this time, call light/phone/water within reach, no s/s of acute distress observed.
--- NOTE | 2020-10-22 08:00 | NUR ---
Spouse at bedside.
[2020-10-22 09:10] VITALS: BP 137/60
--- NOTE | 2020-10-22 14:35 | NUR ---
Discharged home to self care in stable condition via w/c accompanied by hospital staff and spouse, no s/s of acute distress observed.
== END 2020-10-22 14:35 | disposition home or self-care (01) ==
LOC: D.ER 13:40 → OBSVTIME 16:01 → D.M2 16:01
PROVIDERS: Emergency Medicine; ADMIT Family Medicine; ATTEND Family Medicine
DX: R53.1 Weakness (principal); G93.41 Metabolic encephalopathy; N31.9 Neuromuscular dysfunction of bladder, unspecified; I73.9 Peripheral vascular disease, unspecified; G62.9 Polyneuropathy, unspecified; G89.29 Other chronic pain; F32.9 Major depressive disorder, single episode, unspecified; E87.0 Hyperosmolality and hypernatremia; E88.09 Other disorders of plasma-protein metabolism, not elsewhere classified